=== PATIENT | female | born 1940 | race Caucasian/White ===

== ENCOUNTER 2017-07-08 06:23 | Day surgery (SDC) | payer SELFPAY ==
[2017-07-07 18:13] VITALS: BMI 27.7
[2017-07-08] MEDS ORDERED: MIDAZOLAM HCL 2 MG/2 ML SINGLE DOSE VIAL ONE (07:14)
[2017-07-08] MEDS ORDERED: fentaNYL CITRATE 250 MCG/5 ML VIAL ONE (07:14)
[2017-07-08] MEDS ORDERED: SODIUM CHLORIDE 0.9% P/F 10 ML VIAL IJ ONE (07:23)
[2017-07-08] MEDS ORDERED: BACITRACIN 15 GM TUBE TOPICAL OINTMENT ONE (07:24)
[2017-07-08] MEDS ORDERED: LIDOCAINE 1%/EPI 1:100000 (20 ML MULTI DOSE VIAL) ONE (07:24)
[2017-07-08] MEDS ORDERED: SUCCINYLCHOLINE CHLORIDE 200 MG/10 ML VIAL ONE (07:35)
[2017-07-08] MEDS ORDERED: PROPOFOL 20 ML ONE ×6 (07:35→09:11)
[2017-07-08] MEDS ORDERED: LIDOCAINE HCL 2% 100 MG/5 ML DISP.SYRIN ONE (08:17)
[2017-07-08] MEDS ORDERED: PHENYLEPHRINE HCL 10 MG/1 ML SINGLE DOSE VIAL ONE (08:28)
[2017-07-08] MEDS ORDERED: ceFAZolin SODIUM 1 GM VIAL ONE (08:30)
[2017-07-08] MEDS ORDERED: ONDANSETRON 4 MG/2 ML VIAL ONE ×2 (08:30→09:55)
[2017-07-08] MEDS ORDERED: DEXAMETHASONE SOD PHOSPHATE 4 MG/1 ML VIAL ONE ×2 (08:30→09:55)
[2017-07-08] MEDS ORDERED: ONDANSETRON 4 MG/2 ML VIAL IVPUSH PRN (10:16)
[2017-07-08] MEDS ORDERED: oxyCODONE HCL 5 MG TABLET PO PRN (10:16)
[2017-07-08] MEDS ORDERED: LACTATED RINGERS SOLUTION 1,000 ML IV SCH (10:30)
--- NOTE | 2017-07-08 12:55 | OP ---
DATE OF OPERATION: 07/08/2017 SURGEON: Kandi Merino MD PRODUCTION RECOVERY OPERATOR SURGEON: RAMIRO Gomez PREOPERATIVE DIAGNOSIS: Aging brow deformity. POSTOPERATIVE DIAGNOSIS: Aging brow deformity. PROCEDURE: Endoscopic bilateral brow lift. OPERATIVE INDICATION: The patient is an elderly woman who complains of sagging of her brow with medial brow musculature. The risks and benefits, surgical versus nonsurgical alternatives as well as the material complications including the use of botulinum toxin and other modalities were discussed on multiple occasions with the patient preoperatively. She agreed to the planned procedure. OPERATIVE PROCEDURE IN DETAIL: The patient was taken to the operating room, and after induction of monitored care anesthesia in a supine position by the Anesthesia department, the entire face and forehead were prepped first washed with a Hibiclens solution over the entire brow and scalp and then prepped with Hibiclens ChloraPrep over the entire brow and scalp. The incisions, which were planned in a sitting position preoperatively and in the lateral area over the temporalis muscle measuring 2.5 cm on each side were injected with 0.5% local lidocaine anesthesia with 1:200,000 epinephrine as well as the forehead and brow itself. At this point, after prepping and draping in the usual fashion for endoscopic brow lift, attention was turned to the incisions. The hair was carefully and all hair follicles protected. An incision was made vertically into the hairline anteriorly and then laterally along the temporalis muscle area in the usual fashion. Dissection was carried down to the periosteum under direct vision and then undermining of the anterior forehead down to the mid level was carried out using the periosteal elevators. At this point, a Storz 30-degree endoscopic brow scope was placed into the sheath and placed into the subperiosteal space. Dissection was then carried out from multiple locations using curved elevators and sharp scissors with coagulators down to the level of the area just above the eyebrows on both sides and in the midline to the procerus and supraciliary muscles. Using blunt dissection, the muscles were teased out after division of the periosteum and galea, and all nerves were visualized in the endoscope. The visualization was excellent, and all nerves were preserved. The areas of the procerus and supraciliary muscles were then divided and coagulated using the grasper with bipolar electrocautery. This gave good elevation of the brow itself, and copious irrigation of the wound was performed. All hemostasis was meticulous attained throughout because of the history of use of Xarelto. An advancement was then created superiorly approximately 2-3 cm superiorly on the whole brow area. Laterally, the wounds were advanced and closed using interrupted 2-0 Mersilene sutures tacking the deep temporal fascia to the superficial temporal fascia anteriorly and bringing the brow into a higher position. In the central portion, the brow motion was enough that a small area of scalp in the posterior hairline area was removed and advanced and closed upon itself. The wound was closed with multiple Mersilene sutures on the pericranium and deep tissues and then marco antonio were used on the scalp itself. Good advancement and symmetry was seen. The area of the deep brow creases appeared to be flattened, and no movement was ascertained upon awakening. At this point, ice dressings were placed over noted to have forehead, though hair and scalp were washed with ChloraPrep solution again and then rinsed, and the patient was awakened and transferred to the recovery room in satisfactory condition. She tolerated the procedure well. KANDI MERINO M.D. [id number]
[2017-07-08 13:21] VITALS: TEMP 97.8
[2017-07-08 14:32] VITALS: BP 139/70; PULSE 60
== END 2017-07-08 13:05 | disposition home or self-care (01) ==
LOC: FASU 06:23
PROVIDERS: ATTEND Plastic Surgery
PROC: [UNRECOGNIZED PROCEDURE] (principal; 2017-07-08 08:54)
DX: Z41.1 Encounter for cosmetic surgery (principal); M95.2 Other acquired deformity of head
CPT/HCPCS: 94760

== ENCOUNTER 2024-06-28 06:25 | Day surgery (SDC) | payer SELFPAY ==
[2024-06-25 12:36] VITALS: BMI 25.1
[~2024-06-28 06:25] MED LIST: oxyCODONE HCL 5 MG TABLET PO PRN
[2024-06-28] MEDS ORDERED: TRANEXAMIC ACID 1000 MG/10 ML VIAL ONE (07:16)
[2024-06-28] MEDS ORDERED: POVIDONE-IODINE 5% OPHTHALMIC PREP 30 ML SOLUTION ONE (07:16)
[2024-06-28] MEDS ORDERED: BACITRACIN ZINC 15 GM TUBE TOPICAL OINTMENT ONE (07:17)
[2024-06-28] MEDS ORDERED: PROPOFOL 40 ML ONE (07:17)
[2024-06-28] MEDS ORDERED: LIDOCAINE 1%/EPI 1:100000 (20 ML MULTI DOSE VIAL) ONE (07:17)
[2024-06-28] MEDS ORDERED: LIDOCAINE HCL/PF 2% SDV 5ML VIAL ONE (07:17)
[2024-06-28] MEDS ORDERED: SUCCINYLCHOLINE CHLORIDE 200 MG/10 ML SYRINGE ONE (07:19)
[2024-06-28] MEDS ORDERED: SUGAMMADEX SODIUM 200 MG/2 ML VIAL ONE (07:19)
[2024-06-28] MEDS ORDERED: ROCURONIUM BROMIDE 50 MG/5 ML SYRINGE ONE (07:19)
[2024-06-28] MEDS ORDERED: MIDAZOLAM HCL 2 MG/2 ML SINGLE DOSE VIAL ONE (07:20)
[2024-06-28] MEDS ORDERED: ceFAZolin SODIUM 1 GM VIAL ONE (07:22)
[2024-06-28] MEDS ORDERED: DEXAMETHASONE SOD PHOSPHATE 4 MG/1 ML VIAL ONE (07:22)
[2024-06-28] MEDS ORDERED: ACETAMINOPHEN INJECTION 100 ML ONE (07:36)
[2024-06-28] MEDS ORDERED: SCOPOLAMINE HYDROBROMIDE 1 PATCH PATCH.TD72 ONE (07:37)
[2024-06-28] MEDS ORDERED: ATENOLOL 25 MG TABLET (FP) PO PRN (08:07)
[2024-06-28] MEDS ORDERED: EVOLOCUMAB 140 MG/ML SQ SCH (08:15)
[2024-06-28] MEDS ORDERED: [UNRECOGNIZED DRUG - OTHER] SQ SCH (08:15)
[2024-06-28] MEDS ORDERED: METOCLOPRAMIDE HCL INJECTION 10 MG/2 ML VIAL ONE (08:49)
[2024-06-28] MEDS ORDERED: LACTATED RINGERS SOLUTION 1,000 ML IV SCH (09:00)
[2024-06-28] MEDS ORDERED: ONDANSETRON 4 MG/2 ML VIAL IVPUSH PRN (10:00)
[2024-06-28] MEDS ORDERED: PROMETHAZINE HCL 25 MG/1 ML VIAL IVPB PRN (10:00)
[2024-06-28] MEDS ORDERED: SODIUM CHLORIDE 0.9% P/F 10 ML VIAL IJ ONE (10:07)
[2024-06-28] MEDS ORDERED: PHENYLEPHRINE HCL 10 MG/1 ML SINGLE DOSE VIAL ONE (10:08)
[2024-06-28] MEDS ORDERED: SEVOFLURANE 250 ML BTL ONE (10:51)
[2024-06-28] MEDS ORDERED: ONDANSETRON 4 MG/2 ML VIAL ONE (11:34)
[2024-06-28] MEDS ORDERED: MUPIROCIN 2% TOPICAL OINTMENT FOR DECOLONIZATION NS ONE (11:35)
[2024-06-28] MEDS: cloNIDine HCL 0.1 MG TABLET PO ONE (14:03)
[2024-06-28] MEDS: ACETAMINOPHEN 1000 MG/100 ML BAG IVPB SCH (15:40)
[2024-06-28] MEDS: PANTOPRAZOLE 40 MG TABLET PO SCH (18:51)
[2024-06-28] MEDS ORDERED: ZOLPIDEM TARTRATE 5 MG TABLET PO PRN (22:00)
[2024-06-28] MEDS: ROSUVASTATIN CA 40 MG TABLET PO SCH (22:03)
[2024-06-28] MEDS: cloNIDine HCL 0.1 MG TABLET PO SCH (22:03)
[2024-06-29 03:02] VITALS: RESP 18
[2024-06-29 05:19] VITALS: TEMP 98.1
[2024-06-29] MEDS: PATIENT'S OWN MEDICATION (NON-FORMULARY) (Vitamin B Complex [Vitamin B Complex] 1 EACH Cap PO SCH (09:39)
[2024-06-29] MEDS: VALSARTAN 80 MG TABLET PO SCH (09:45)
[2024-06-29 09:48] VITALS: BP 94/58; PULSE 64
[2024-06-29] MEDS: [UNRECOGNIZED DRUG - OTHER] PO SCH (11:03)
[2024-06-29] MEDS: MAGNESIUM CITRATE AND OXIDE 250 MG PO SCH (11:03)
== END 2024-06-29 12:50 | disposition home or self-care (01) ==
LOC: FASUSAT 06:25 → FM/S 13:06 → FASUSAT 06-29 12:50
PROVIDERS: ATTEND Plastic Surgery
PROC: 0W020ZZ Alteration of Face, Open Approach (ICD-10-PCS; principal; 2024-06-28 08:47)
DX: L90 Atrophic disorders of skin (principal); Z41.1 Encounter for cosmetic surgery
CPT/HCPCS: 94760; J0131